=== PATIENT | female | born 1975 | race Caucasian/White ===

== ENCOUNTER 2017-12-12 14:42 | Emergency (ER) | payer OTHER ==
--- NOTE | 2017-12-12 16:18 | RAD ---
HISTORY: Left knee pain COMPARISONS: None VIEWS: 4, Frontal, lateral, axial, and oblique views of the left knee FINDINGS: BONE DENSITY: Normal. BONES: There is no displaced fracture. JOINTS: There is no arthropathy. There is no suprapatellar joint effusion or lipohemarthrosis. ALIGNMENT: There is no dislocation. SOFT TISSUES: Unremarkable. OTHER FINDINGS: None. IMPRESSION: NO ACUTE OSSEOUS INJURY. IF SYMPTOMS PERSIST, RECOMMEND REPEAT IMAGING.
--- NOTE | 2017-12-12 16:52 | ED ---
Lower Extremity - HPI Summary HPI Summary: Patient is a 42-year-old female presenting to the emergency department for left knee pain 1 week. Patient does not recall any specific injuries or falls. She does work at [employer] and states she does a lot of bending and lifting. Pain is worse with ambulation. She takes Ultram for chronic pain which is not helping knee. Has not taken any NSAIDs. Symptoms are mild in severity. - History of Current Complaint Chief Complaint: EDExtremityLower Stated Complaint: KNEE PAIN Time Seen by Provider: 12/12/17 15:09 Hx Obtained From: Patient Pain Intensity: 5 - Allergies/Home Medications Allergies/Adverse Reactions: Allergies Allergy/AdvReac Type Severity Reaction Status Date / Time banana Allergy Swelling Verified 12/12/17 14:55 Of Face,Lips,& Throat Penicillins Allergy Rash Verified 12/12/17 14:54 PMH/Surg Hx/FS Hx/Imm Hx Previously Healthy: Yes Infectious Disease History: No Infectious Disease History: Denies: Traveled Outside the in Last 30 Days - Social History Occupation: Employed Full-time Lives: With Family Alcohol Use: None Substance Use Type: Reports: None Smoking Status (MU): Heavy Every Day Tobacco Smoker Review of Systems Positive: Other - left knee pain All Other Systems Reviewed And Are Negative: Yes Physical Exam Triage Information Reviewed: Yes Vital Signs On Initial Exam: Initial Vitals Temp Pulse Resp BP Pulse Ox 98.3 F 93 15 132/84 100 12/12/17 14:51 12/12/17 14:51 12/12/17 14:51 12/12/17 14:51 12/12/17 14:51 Vital Signs Reviewed: Yes Appearance: Positive: Well-Appearing - Pt. sitting on bed in NAD. Skin: Positive: Warm, Dry Head/Face: Positive: Normal Head/Face Inspection Eyes: Positive: Normal, MARÍA Neck: Positive: Supple Musculoskeletal: Positive: Other - No effusion or edema noted to left knee. Pain on palpation over the patella. Pain with flexion and extension but patient has full range of motion. Leg is neurovascularly intact. No overlying erythema or increased warmth. Knee is stable. Neurological: Positive: Normal, CN Intact II-III Psychiatric: Positive: Normal Procedures - Splinting Pre-Made Type: Yefri wrap left knee Pre-Proc Neuro Vasc Exam: normal Post-Proc Neuro Vasc Exam: normal Diagnostics - Vital Signs Vital Signs Temp Pulse Resp BP Pulse Ox 12/12/17 14:51 98.3 F 93 15 132/84 100 - Laboratory Lab Statement: Any lab studies that have been ordered have been reviewed, and results considered in the medical decision making process. Lower Extremity Course/Dx - Course Course Of Treatment: Pt. presenting to the ER for atraumatic left knee pain. She does a lot of lifting and movement at work. Knee x-ray is negative for fracture or dislocation. Results were discussed. Yefri wrap placed for comfort. Naproxen prescribed for pain. Advised activity as tolerated. To ice and elevate. Follow-up with orthopedics if symptoms continue. Pt. understands and agrees with plan. - Diagnoses Differential Diagnosis/HQI/PQRI: Positive: Bursitis, Contusion, Fracture (Closed ), Sprain, Strain Provider Diagnoses: Knee pain Discharge - Sign-Out/Discharge Documenting (check all that apply): Discharge/Admit/Transfer - Discharge Plan Condition: Good Disposition: HOME Prescriptions: Naproxen [Naproxen 500 mg tab] 500 mg PO BID 10 Days #20 tablet Patient Education Materials: Knee Pain (ED) Referrals: Darvin Ramirez MD [Medical Doctor] - Julienne Calix NP [Primary Care Provider] - Additional Instructions: Call Dr. Ramirez's office tomorrow to schedule an appointment Ice and elevate Naproxen as directed for pain Activity as tolerated - Billing Disposition and Condition Condition: GOOD Disposition: HOME
[2017-12-12 18:30] VITALS: BP 107/69
== END 2017-12-12 17:10 | disposition home or self-care (01) ==
LOC: SUPCPDRO 14:42 → ED 14:42
DX: M25.562 Pain in left knee (principal)
CPT/HCPCS: 99282